=== PATIENT | female | born 1970 | race African-American/Black ===

== ENCOUNTER 2018-12-09 20:31 | Emergency (ER) | payer OTHER, SELFPAY ==
[~2018-12-09] VITALS: Ht 165.1 cm; Wt 73.5 kg
[2018-12-09 21:04] VITALS: BP 161/101
[2018-12-09] MEDS ORDERED: LIDOCAINE 2%/EPI 1:100,000 20 ML VIAL. IJ ONE (21:30)
[2018-12-09] MEDS ORDERED: HYDROcodone/APAP 5/325MG 1 TAB TABLET PO ONE (21:30)
[2018-12-09] MEDS ORDERED: HYDR-3164 PO (23:26)
--- NOTE | 2018-12-09 23:27 | PHYS DOC ---
Past Medical History Past Medical History: No Pertinent History Past Surgical History: No Surgical History Alcohol Use: None Drug Use: None Adult General Chief Complaint Chief Complaint: LACERATION/AVULSION HPI HPI Patient is a 48 year old [f__sex] who presents with [] Review of Systems Review of Systems Constitutional: Denies fever or chills [] Eyes: Denies change in visual acuity, redness, or eye pain [] HENT: Denies nasal congestion or sore throat [] Respiratory: Denies cough or shortness of breath [] Cardiovascular: No additional information not addressed in HPI [] GI: Denies abdominal pain, nausea, vomiting, bloody stools or diarrhea [] : Denies dysuria or hematuria [] Musculoskeletal: Denies back pain or joint pain [] Integument: Denies rash or skin lesions [] Neurologic: Denies headache, focal weakness or sensory changes [] Endocrine: Denies polyuria or polydipsia [] All other systems were reviewed and found to be within normal limits, except as documented in this note. Current Medications Current Medications Current Medications Medications (Trade) Dose Ordered Sig/Yaron Start Time Stop Time Status Last Admin Dose Admin Acetaminophen/ Hydrocodone Bitart (Lortab 5/325) 1 tab 1X ONCE 12/09/18 21:30 12/09/18 21:31 DC 12/09/18 21:37 1 TAB Lidocaine/ Epinephrine (LIDOCAINE 2%-EPI 1:100,000 multi-dose) 20 ml 1X ONCE 12/09/18 21:30 12/09/18 21:31 DC 12/09/18 21:30 20 ML Neomycin/ Polymyxin/ Bacitracin (Triple Antibiotic Ointment) 1 pkt STK-MED ONCE 12/09/18 23:34 12/09/18 23:35 DC Allergies Allergies Allergies Coded Allergies Type Severity Reaction Last Updated Verified quinine Allergy Unknown 12/09/18 Yes Physical Exam Physical Exam Constitutional: Well developed, well nourished, no acute distress, non-toxic appearance. [] HENT: Normocephalic, atraumatic, bilateral external ears normal, oropharynx moist, no oral exudates, nose normal. [] Eyes: PERRLA, EOMI, conjunctiva normal, no discharge. [] Neck: Normal range of motion, no tenderness, supple, no stridor. [] Cardiovascular:Heart rate regular rhythm, no murmur [] Lungs & Thorax: Bilateral breath sounds clear to auscultation [] Abdomen: Bowel sounds normal, soft, no tenderness, no masses, no pulsatile masses. [] Skin: Warm, dry, no erythema, no rash. [] Back: No tenderness, no CVA tenderness. [] Extremities: No tenderness, no cyanosis, no clubbing, ROM intact, no edema. [] Neurologic: Alert and oriented X 3, normal motor function, normal sensory fun ction, no focal deficits noted. [] Psychologic: Affect normal, judgement normal, mood normal. [] Current Patient Data Vital Signs Vital Signs Date Time Temp Pulse Resp B/P (MAP) Pulse Ox O2 Delivery O2 Flow Rate FiO2 12/09/18 21:37 20 Room Air 12/09/18 21:04 98.7 77 161/101 (121) 100 98.7 Lab Values Laboratory Tests Test 12/09/18 21:24 POC Urine HCG, Qualitative Hcg negative (Negative) EKG EKG [] Radiology/Procedures Radiology/Procedures [] Course & Med Decision Making Course & Med Decision Making Pertinent Labs and Imaging studies reviewed. (See chart for details) [] Dragon Disclaimer Dragon Disclaimer This electronic medical record was generated, in whole or in part, using a voice recognition dictation system. Departure Departure Impression: Primary Impression: Hand laceration Disposition: 01 HOME, SELF-CARE Condition: STABLE Referrals: UNKNOWN PCP NAME (PCP) Patient Instructions: Laceration Care, Adult, [id number] Additional Instructions: Do not soak your wound. You may shower. Clean wound daily with soap and water. Change dressing 2 times daily. Use over the counter antibiotic ointment with each dressing change. Sutures need to be removed in 7-10 days. Present to your family doctor or local urgent care for removal. You may also present to the ED but it will be an additional visit/charge. After suture removal you may use Vitamin E ointment to soften the wound and prevent scarring. Scripts Cephalexin (KEFLEX) 500 Mg Capsule 500 MG PO TID for 5 Days, #15 CAP Prov: RUTH PAZ DO 12/09/18 Hydrocodone/Apap 5-325 (NORCO 5-325 TABLET) 1 Each Tablet 0.5 TAB PO PRN Q6HRS PRN for PAIN, #8 TAB 0 Refills Prov: RUTH PAZ DO 12/09/18 Laceration/Wound Repair Laceration/Wound Repair #1: Wound Location: upper extremity Wound's Depth, Shape: superficial, irregular Wound Length (cm): 3 Wound Explored: clean Irrigated w/ Saline (ccs): 250 Betadine Prep?: Yes Anesthesia: Lidocaine w/ Epi Volume Anesthetic (ccs): 5 Wound Debrided: minimal Wound Repaired With: sutures Suture Size/Type: 5:0, nylon Number of Sutures: 5 Layer Closure?: No Sterile Dressing Applied?: Yes Splint Applied?: No Sling Applied?: No Laceration/Wound Repair #2: Wound Location: upper extremity Wound's Depth, Shape: superficial, irregular, flap Wound Length (cm): 2 Wound Explored: clean Irrigated w/ Saline (ccs): 250 Betadine Prep?: Yes Anesthesia: Lidocaine w/ Epi Volume Anesthetic (ccs): 3 Wound Debrided: minimal Wound Repaired With: sutures Suture Size/Type: 5:0 Number of Sutures: 4 Layer Closure?: No Sterile Dressing Applied?: Yes Splint Applied?: No Sling Applied?: No Problem Qualifiers Primary Impression: Hand laceration Encounter type: initial encounter Foreign body presence: without foreign body Laterality: left Qualified Codes: S61.412A - Laceration without fo reign body of left hand, initial encounter RUTH PAZ DO December 09, 2018 23:27
[2018-12-09] MEDS ORDERED: NEOMY/BACITR/POLYMYXIN OINT PACKET. TP ONE (23:34)
[2018-12-09] MEDS ORDERED: CEPH-264 PO (23:48)
--- NOTE | 2018-12-10 02:07 | RAD ---
Left hand 3 views. HISTORY: Pain lacerations from head tremor 3 views were taken of the left hand. There is not evidence of an acute fracture or osseous abnormality. An opaque foreign body is not identified. IMPRESSION: 1. No acute fracture noted in the left hand. Electronically signed by: Azael Kumar MD (12/10/2018 2:04 AM) [facility]
== END 2018-12-09 23:50 | disposition home or self-care (01) ==
LOC: ER 20:31
DX: S61.412A Laceration without foreign body of left hand, initial encounter (principal); Z88.8 Allergy status to other drugs, medicaments and biological substances; W27.1XXA Contact with garden tool, initial encounter; Y93.H2 Activity, gardening and landscaping; Y92.096 Garden or yard of other non-institutional residence as the place of occurrence of the external cause; Y99.8 Other external cause status
CPT/HCPCS: 12002; 73130; 81025; 99284; J3490

== ENCOUNTER 2018-12-27 10:53 | Emergency (ER) | payer OTHER ==
[~2018-12-27] VITALS: Ht 167.6 cm; Wt 68.0 kg
[~2018-12-27 10:53] MED LIST: CEPH-264 PO; HYDR-3164 PO
--- NOTE | 2018-12-27 12:09 | RAD ---
EXAM: HAND LEFT 3V. HISTORY: Third digit infection. COMPARISON: 12/09/2018. FINDINGS: There is soft tissue swelling about the third middle phalanx. No radiopaque foreign body or soft tissue gas is identified. No fractures are identified. Joint spaces and alignment are maintained. IMPRESSION: 1. Soft tissue swelling about the third middle phalanx. No fracture or radiopaque foreign body. Electronically signed by: Toyin Dickey MD (12/27/2018 12:07 PM) [facility]
[2018-12-27] MEDS ORDERED: CLINDAMYCIN 900MG PREMIX 50 ML IV ONE (12:15)
[2018-12-27 12:33] LABS: BASO # 0.1 x10^3/uL (0.0-0.2); BASO % 1 % (0-3); EOS # 0.2 x10^3/uL (0.0-0.7); EOS % 4 % (0-3); HEMATOCRIT 39.6 % (36.0-47.0); LYMPH # 1.4 x10^3/uL (1.0-4.8); LYMPH % 31 % (24-48); MEAN CORPUSCULAR HEMOGLOBIN 26 pg (25-35); MEAN CORPUSCULAR HGB CONC 33 g/dL (31-37); MEAN CORPUSCULAR VOLUME 80 fL (79-100); MONO # 0.4 x10^3/uL (0.0-1.1); MONO % 8 % (0-9); NEUT # 2.5 x10^3uL (1.8-7.7); NEUT % 56 % (31-73); PLATELET COUNT 310 x10^3/uL (140-400); RED BLOOD COUNT 4.94 x10^6/uL (3.50-5.40); RED CELL DISTRIBUTION WIDTH 14.6 % (11.5-14.5); WHITE BLOOD COUNT 4.5 x10^3/uL (4.0-11.0)
[2018-12-27 12:39] LABS: CALCIUM 9.1 mg/dL (8.5-10.1); CREATININE 0.9 mg/dL (0.6-1.0); GFR 80.9
[2018-12-27 12:42] LABS: C-REACTIVE PROTEIN 1.5 mg/L (0-3.3)
--- NOTE | 2018-12-27 12:58 | PHYS DOC ---
Past Medical History Past Medical History: No Pertinent History Past Surgical History: Hysterectomy Alcohol Use: None Drug Use: None Adult General Chief Complaint Chief Complaint: FINGER INJURY HPI HPI Patient is a 48 year old female who presents with left middle finger infection. Patient states on December 09, 2018 she sustained a laceration to the left middle finger that was closed with sutures, she states she also had laceration on the left palm. She states she was discharged with hydrocodone and cephalexin which she took completed. She states she returned to the ED on December 16, 2018 and head sutures removed. She states she has continued to have swelling and redness on the left middle finger and pain. Patient states the finger also feels warm. Patient denies any new injuries. She states her tetanus is up-to-date. Patient is right handed. Denies any drainage from the finger. Review of Systems Review of Systems Constitutional: Denies fever or chills [] : Denies dysuria or hematuria [] Musculoskeletal: Denies back pain or joint pain [] Integument: Reports left middle finger infection, with pain and swelling. Neurologic: Denies headache, focal weakness or sensory changes [] All other systems were reviewed and found to be within normal limits, except as documented in this note. Current Medications Current Medications Current Medications Medications (Trade) Dose Ordered Sig/Yaron Start Time Stop Time Status Last Admin Dose Admin Clindamycin Phosphate 50 ml @ 100 mls/hr 1X ONCE 12/27/18 12:15 12/27/18 12:44 DC 12/27/18 12:25 100 MLS/HR Allergies Allergies Allergies Coded Allergies Type Severity Reaction Last Updated Verified quinine Allergy Unknown 12/09/18 Yes Physical Exam Physical Exam Constitutional: Well developed, well nourished, no acute distress, non-toxic appearance. [] Skin: ventral aspect left middle finger PIP joint with an old laceration approximately 2 cm long. There is no drainage from the fingers. There is trace erythema on the medial and lateral aspect of the PIP joint of the left middle finger. There is warmth to the left middle finger PIP joint. Patient able to flex and extend the finger at the MIP, PIP and DIP joints. Adequate medial, ulnar sensation to the left middle finger. +2 left radial pulse. Cap refill less than 2 seconds. There is another scab noted on the left palmar thenar. The scab has no signs of infection. Back: No tenderness, no CVA tenderness. [] Extremities: No tenderness, no cyanosis, no clubbing, ROM intact, no edema. [] Neurologic: Alert and oriented X 3, normal motor function, normal sensory function, no focal deficits noted. [] Psychologic: Affect normal, judgement normal, mood normal. [] Current Patient Data Vital Signs Vital Signs Date Time Temp Pulse Resp B/P (MAP) Pulse Ox O2 Delivery O2 Flow Rate FiO2 12/27/18 11:10 97.7 71 20 156/87 (110) 97 Room Air 97.7 Lab Values Laboratory Tests Test 12/27/18 12:12 White Blood Count 4.5 x10^3/uL (4.0-11.0) Red Blood Count 4.94 x10^6/uL (3.50-5.40) Hemoglobin 13.0 g/dL (12.0-15.5) Hematocrit 39.6 % (36.0-47.0) Mean Corpuscular Volume 80 fL (79-100) Mean Corpuscular Hemoglobin 26 pg (25-35) Mean Corpuscular Hemoglobin Concent 33 g/dL (31-37) Red Cell Distribution Width 14.6 % (11.5-14.5) H Platelet Count 310 x10^3/uL (140-400) Neutrophils (%) (Auto) 56 % (31-73) Lymphocytes (%) (Auto) 31 % (24-48) Monocytes (%) (Auto) 8 % (0-9) Eosinophils (%) (Auto) 4 % (0-3) H Basophils (%) (Auto) 1 % (0-3) Neutrophils # (Auto) 2.5 x10^3uL (1.8-7.7) Lymphocytes # (Auto) 1.4 x10^3/uL (1.0-4.8) Monocytes # (Auto) 0.4 x10^3/uL (0.0-1.1) Eosinophils # (Auto) 0.2 x10^3/uL (0.0-0.7) Basophils # (Auto) 0.1 x10^3/uL (0.0-0.2) Sodium Level 139 mmol/L (136-145) Potassium Level 4.0 mmol/L (3.5-5.1) Chloride Level 103 mmol/L (98-107) Carbon Dioxide Level 29 mmol/L (21-32) Anion Gap 7 (6-14) Blood Urea Nitrogen 9 mg/dL (7-20) Creatinine 0.9 mg/dL (0.6-1.0) Estimated GFR (Cockcroft-Gault) 80.9 Glucose Level 99 mg/dL (70-99) Lactic Acid Level 1.1 mmol/L (0.4-2.0) Calcium Level 9.1 mg/dL (8.5-10.1) C-Reactive Protein, Quantitative 1.5 mg/L (0-3.3) Laboratory Tests 12/27/18 12:12 Laboratory Tests 12/27/18 12:12 EKG EKG [] Radiology/Procedures Radiology/Procedures [] Impressions: PROCEDURE: HAND LEFT 3V EXAM: HAND LEFT 3V. HISTORY: Third digit infection. COMPARISON: 12/09/2018. FINDINGS: There is soft tissue swelling about the third middle phalanx. No radiopaque foreign body or soft tissue gas is identified. No fractures are identified. Joint spaces and alignment are maintained. IMPRESSION: 1. Soft tissue swelling about the third middle phalanx. No fracture or radiopaque foreign body. Electronically signed by: Toyin Dickey MD (12/27/2018 12:07 PM) [facility] DICTATED and SIGNED BY: KHRIS DICKEY MD DATE: 12/27/181206 Course & Med Decision Making Course & Med Decision Making Pertinent Labs and Imaging studies reviewed. (See chart for details) This is a 48-year-old female patient presented to the ED today with left middle finger infection. See history of present illness for further information. Labs are negative. Given clindamycin IV in the ED. X-ray of the left hand noted for swelling otherwise no acute findings. Talked to patient at length. D/c on Clindamycin and topical Bactroban. She already finished Cephalaxin two weeks ago. F/u with Hand surgeon. Kaity Disclaimer Kaity Disclaimer This electronic medical record was generated, in whole or in part, using a voice recognition dictation system. Departure Departure Impression: Primary Impression: Cellulitis of finger of left hand Disposition: 01 HOME, SELF-CARE Condition: STABLE Referrals: UNKNOWN PCP NAME (PCP) follow up with a hand surgeon of your choice in 2 weeks Patient Instructions: Cellulitis Additional Instructions: You have what appears to be superficial infection on the left middle finger your labs are negative for any acute findings. Use the prescribed medications as ordered. Keep the finger clean and dry. Follow up with your own doctor or a hand surgeon of your choice in 2 weeks Scripts Clindamycin Hcl (CLINDAMYCIN HCL) 300 Mg Capsule 1 CAP PO TID, #21 CAP Prov: KAYCEE VALLES APRN 12/27/18 Mupirocin (MUPIROCIN OINTMENT) 22 Gm Oint...g. 1 EDUARDO TP TID for WOUND CARE, #1 TUBE Prov: KAYCEE VALLES APRN 12/27/18 KAYCEE VALLES APRN Dec 27, 2018 12:58
[2018-12-27 13:15] VITALS: BP 152/86
[2018-12-27] MEDS ORDERED: CLIN300C8 PO (13:17)
[2018-12-27] MEDS ORDERED: MUPI22OI2 TP (13:17)
== END 2018-12-27 13:29 | disposition home or self-care (01) ==
LOC: ER 10:53
DX: L03.012 Cellulitis of left finger (principal); Z88.8 Allergy status to other drugs, medicaments and biological substances
CPT/HCPCS: 36415; 73130; 80048; 83605; 85025; 85651; 86140; 87040; 96365; 99285; J3490

== ENCOUNTER 2019-01-25 10:56 | Emergency (ER) | payer OTHER ==
[~2019-01-25] VITALS: Ht 165.1 cm; Wt 68.0 kg
[~2019-01-25 10:56] MED LIST changes: +CLIN300C8 PO; +MUPI22OI2 TP
[2019-01-25 12:00] VITALS: BP 168/93
--- NOTE | 2019-01-25 13:05 | PHYS DOC ---
Past Medical History Past Medical History: No Pertinent History Past Surgical History: No Surgical History Alcohol Use: None Drug Use: None Adult General Chief Complaint Chief Complaint: HAND PROBLEM HPI HPI Patient is a 48 year old female who presents to the ED today requesting a note to be excused from using the left hand at work. 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 She is right handed. Has an appointment with damian hand surgeon on 02/04/2019 Review of Systems Review of Systems Constitutional: Denies fever or chills [] Musculoskeletal: Left middle finger hypersensitivity Integument: Denies rash or skin lesions [] Neurologic: Denies headache, focal weakness or sensory changes [] All other systems were reviewed and found to be within normal limits, except as documented in this note. Allergies Allergies Allergies Coded Allergies Type Severity Reaction Last Updated Verified quinine Allergy Unknown 12/09/18 Yes Physical Exam Physical Exam Constitutional: Well developed, well nourished, no acute distress, non-toxic appearance. [] Skin: Warm, dry, no erythema, no rash. [] Back: No tenderness, no CVA tenderness. [] Extremities: Left middle finger at the PIP joint with a healed laceration site. There is another healed laceration site on the palm of the left hand at the distal index finger metacarpal. Patient appears to have hypersensitivity on the left lateral middle finger. Full range of motion to the left hand and all the fingers. +2 left radial pulse. Cap refill less than 2 seconds the left fingers. Neurologic: Alert and oriented X 3, normal motor function, normal sensory function, no focal deficits noted. [] Psychologic: Affect normal, judgement normal, mood normal. [] Current Patient Data Vital Signs Vital Signs Date Time Temp Pulse Resp B/P (MAP) Pulse Ox O2 Delivery O2 Flow Rate FiO2 01/25/19 12:00 98.3 72 16 168/93 (118) 99 Room Air 98.3 EKG EKG [] Radiology/Procedures Radiology/Procedures [] Course & Med Decision Making Course & Med Decision Making Pertinent Labs and Imaging studies reviewed. (See chart for details) This is a 48-year-old female patient who presents to the ED today requesting a note not to use her left hand at work because she has had a laceration to the left palm of the hand and left middle finger and has developed hypersensitivity to the left middle finger. She has an appointment with the hand surgeon 02/04/2019. She was provided a note to not use her left hand at work until seen by the hand surgeon Kaity Disclaimer Kaity Disclaimer This electronic medical record was generated, in whole or in part, using a voice recognition dictation system. Departure Departure Impression: Primary Impression: Finger pain, left Disposition: 01 HOME, SELF-CARE Condition: STABLE Referrals: UNKNOWN PCP NAME (PCP) Please follow-up with your hand surgeon as scheduled on February 04, 2019 Patient Instructions: Musculoskeletal Pain Additional Instructions: You were evaluated in the emergency room and provided a note to be excused from using the left hand until seen by the hands on February 04 2019. KAYCEE VALLES APRN Jan 25, 2019 13:05
== END 2019-01-25 13:10 | disposition home or self-care (01) ==
LOC: ER 10:56
DX: R20.8 Other disturbances of skin sensation (principal); S61.213D Laceration without foreign body of left middle finger without damage to nail, subsequent encounter; X58.XXXD Exposure to other specified factors, subsequent encounter; Z88.8 Allergy status to other drugs, medicaments and biological substances
CPT/HCPCS: 99281

== ENCOUNTER → 2019-08-13 | Outpatient (CLI) | payer OTHER ==
--- NOTE | 2019-08-13 17:44 | KCIC ---
PELVIS COMPLETE History: Abnormal uterine bleeding. Comparison: None. Technique: Grayscale and color Doppler imaging of the pelvis was performed using transabdominal technique. Findings: The uterus measures 13.6 x 11.8 x 9.7 cm in length. Multiple heterogeneous masses within the uterus. Large myometrial mass with calcification measures 4.3 cm. Anterior myometrial mass measures 2.9 x 2.8 cm. Posterior myometrial mass measures 2.8 x 1.9 cm. The lesions abut the endometrial distorting the endometrium degrading evaluation. Right ovary measures 3.0 x 1.9 x 1.6 cm and is unremarkable. Left ovary measures 3.7 x 2.7 x 2.2 cm. Left ovarian simple cyst measures 3.4 x 2.3 x 1.7 cm. No adnexal masses are seen. IMPRESSION: 1. Enlarged uterus with numerous fibroids. 2. Simple left ovarian cyst. Electronically signed by: Daniel Sands DO (08/13/2019 5:41 PM) [id number]
== END | disposition home or self-care (01) ==
LOC: KCIC US 14:23
PROVIDERS: ATTEND Obstetrics & Gynecology
DX: N85.2 Hypertrophy of uterus (principal); D25.9 Leiomyoma of uterus, unspecified; N83.202 Unspecified ovarian cyst, left side; N92.0 Excessive and frequent menstruation with regular cycle; N93.9 Abnormal uterine and vaginal bleeding, unspecified
CPT/HCPCS: 76856

== ENCOUNTER → 2019-09-23 | Outpatient (CLI) | payer OTHER ==
[~2019-09-23] MED LIST changes: +ACET-159 PO; +GADOTERATE 7.5 MMOL/15ML VIAL. IVP ONE; +PNV1TABL25 PO
--- NOTE | 2019-09-24 12:28 | KCIC ---
MRI of the pelvis with and without contrast Clinical indications: Uterine fibroids. Had previous fibroid surgery in 2016. COMPARISON: No previous MRI study available. Pelvic sonogram dated August 13, 2019. TECHNIQUE: Pre and postcontrast enhanced MRI sequences of the pelvis were performed in all 3 planes. A total of 14 cc of Dotarem was given intravenously. FINDINGS: Uterus is anteverted in position and is enlarged. Uterus measures 14.5 cm in vertical dimension. There are multiple low signal uterine fibroids throughout the uterus to numerous to count. There is mild enhancement of these fibroids. The there is no T2 degenerative cystic or necrotic change present in the fibroids. The largest is seen on the left side within the mid body of uterus measuring 4 cm. The endometrial canal is distorted as result of the numerous fibroids. There are some fibroids which appear to be intraluminal within the endometrial canal and one such fibroid may be bilobed or represents 2 separate adjacent fibroids within the anterior mid to upper aspect of the endometrial canal. This fibroid measures 3.2 cm greatest dimension. The endometrial canal measures up to 14 mm in thickness. No abnormal enhancement of the endometrium is seen. The junctional zone of the uterus is distorted by the multiple uterine fibroids. Multiple nabothian cysts of the cervix are seen. The vaginal vault and vulva are unremarkable. Urinary bladder wall is smooth. Nonenhancing left ovarian cysts are seen. The largest measures 2.9 cm in size. No mass or dominant cyst of the right ovary is seen. No adnexal mass is seen. No free fluid is seen within the cul-de-sac. No enlarged pelvic lymphadenopathy is seen. IMPRESSION: Enlarged fibroid uterus. Multiple fibroids too numerous to count. Fibroids are seen distorting and extending into the endometrial canal. Endometrial canal is distorted and measures 14 mm in greatest AP thickness. The measurement may be inaccurate due to the distortion by the fibroids. Nabothian cysts of the cervix. 2.9 cm left ovarian cyst. This measured 3.4 cm on previous sonogram dated August 13, 2019. Electronically signed by: Werner Floyd MD (09/24/2019 12:24 PM) [facility]
== END | disposition home or self-care (01) ==
LOC: KCIC MRI 11:41
PROVIDERS: ATTEND Obstetrics & Gynecology Reproductive Endocrinology
DX: D25.9 Leiomyoma of uterus, unspecified (principal); N88.8 Other specified noninflammatory disorders of cervix uteri; N83.202 Unspecified ovarian cyst, left side
CPT/HCPCS: 72197; A9575

== ENCOUNTER → 2019-10-01 | Outpatient (CLI) | payer OTHER ==
[~2019-10-01] MED LIST changes: -GADOTERATE 7.5 MMOL/15ML VIAL. IVP ONE; -PNV1TABL25 PO
== END | disposition home or self-care (01) ==
LOC: LAB 12:39
PROVIDERS: ATTEND Obstetrics & Gynecology
DX: D21.9 Benign neoplasm of connective and other soft tissue, unspecified (principal)
CPT/HCPCS: 36415; 84702

== ENCOUNTER → 2019-10-02 | Outpatient (CLI) | payer OTHER ==
[~2019-10-02] MED LIST changes: +IOHEXOL 180 MG/ML 10 ML VIAL. INT UTERIN ONE
--- NOTE | 2019-10-02 10:35 | KCIC ---
Hysterosalpingogram HISTORY: Infertility COMPARISON: MRI pelvis September 23, 2019 TECHNIQUE: Patient was informed of the risks to include pain, infection, bleeding, allergic reaction. All questions were answered. Patient signed a written consent form for hysterosalpingogram. Patient was placed in a supine position on the fluoroscopy table. External skin surface was cleansed with Betadine solution. Speculum was inserted. Cervix was cleansed with Betadine solution. HSG catheter was inserted and secured with balloon inflation. Contrast was injected during fluoroscopic visualization, 28 cc of Omnipaque 180. The balloon was deflated and catheter removed. Speculum was removed. There were no immediate complications. FINDINGS: Machine Hostler radiograph demonstrates some calcifications in the pelvis greater on the left which may be phleboliths. There is significant enlargement of the uterus with multiple areas of smooth extrinsic compression upon the endometrial cavity. There is a more rounded filling defect along the left aspect of the lower uterine segment, multiple other larger foci near the fundus and more eccentric to the left. Due to the large capacious endometrial cavity and subsequent leakage of contrast about the catheter with further injection, there was difficulty in opacifying the fallopian tubes. Short segment of normal caliber proximal left fallopian tube was visualized although not identified more distally. Only the proximal, somewhat dilated right fallopian tube could be visualized. Fluoroscopy time: 46 seconds, 11 images. IMPRESSION: 1. There is irregular appearing endometrial cavity with multiple filling defects corresponding with multiple uterine masses as seen on recent pelvis MRI. Uterus is enlarged. Only short segments of the proximal fallopian tubes could be visualized, the right proximal fallopian tube slightly dilated. Contrast opacification of the distal fallopian tubes and significant free spill of contrast could not be demonstrated from either fallopian tube during exam despite further injection. Electronically signed by: Martin Wilkinson MD (10/02/2019 10:33 AM) [id number]
== END | disposition home or self-care (01) ==
LOC: KCIC 08:41
PROVIDERS: ATTEND Obstetrics & Gynecology
DX: N85.2 Hypertrophy of uterus (principal); N85.8 Other specified noninflammatory disorders of uterus
CPT/HCPCS: 74740; Q9965

== ENCOUNTER 2019-10-10 06:30 | Inpatient (IN) | payer OTHER ==
[2019-10-10] VITALS (10 sets, daily range): BP systolic 107–133; BP diastolic 59–82
[~2019-10-10] VITALS: Ht 167.6 cm; Wt 79.0 kg
[~2019-10-10 06:30] MED LIST changes: -IOHEXOL 180 MG/ML 10 ML VIAL. INT UTERIN ONE; +PNV1TABL25 PO; +ceFAZolin SODIUM IV Push 1 GM VIAL. IVP ONE
[2019-10-10] MEDS ORDERED: PROCHLORPERAZINE 10 MG/2 ML VIAL. IV PRN ×2 (07:00→10:45)
[2019-10-10] MEDS ORDERED: fentaNYL PF VIAL 100 MCG/2 ML VIAL IV PRN (07:00)
[2019-10-10] MEDS ORDERED: IV RINGERS,LACTATED 1000ML 1,000 ML IV SCH (07:00)
[2019-10-10] MEDS ORDERED: LIDOCAINE 1% PF 2 ML VIAL. ID PRN (07:00)
[2019-10-10] MEDS ORDERED: ONDANSETRON PF 4 MG/2 ML VIAL. IV PRN ×2 (07:00→10:45)
[2019-10-10] MEDS ORDERED: ROCURONIUM 50 MG/5 ML VIAL. ONE (07:38)
[2019-10-10] MEDS ORDERED: MIDAZOLAM HCL/PF 2 MG/2 ML VIAL. ONE (07:38)
[2019-10-10] MEDS ORDERED: DEXAMETHASONE SOD PHOS 4 MG/ML VIAL ONE (08:09)
[2019-10-10] MEDS ORDERED: KETOROLAC 30 MG/ML VIAL. ONE (08:09)
[2019-10-10] MEDS ORDERED: SEVOFLURANE 61 TO 120 MINUTES. IH ONE (08:09)
[2019-10-10] MEDS ORDERED: LIDOCAINE 2% PF 5 ML VIAL. ONE (08:09)
[2019-10-10] MEDS ORDERED: FAMOTIDINE 20 MG/2 ML VIAL ONE (08:09)
[2019-10-10] MEDS ORDERED: PHENYLEPHRINE in 0.9% NACL PF 1 MG/10 ML SYRINGE. IV ONE (08:10)
[2019-10-10] MEDS ORDERED: PROPOFOL 20 ML IV ONE (08:10)
[2019-10-10] MEDS ORDERED: GLYCOPYRROLATE 1 MG/5 ML VIAL. ONE (08:12)
[2019-10-10] MEDS ORDERED: NEOSTIGMINE METHYLSULFATE 5 MG/5 ML SYRINGE. ONE (08:12)
[2019-10-10 09:25] LABS: BASO % 1 % (0-3); EOS # 0.1 x10^3/uL (0.0-0.7); EOS % 2 % (0-3); HEMATOCRIT 37.6 % (36.0-47.0); HEMOGLOBIN 12.2 g/dL (12.0-15.5); LYMPH # 1.6 x10^3/uL (1.0-4.8); LYMPH % 32 % (24-48); MEAN CORPUSCULAR HEMOGLOBIN 25 pg (25-35); MEAN CORPUSCULAR HGB CONC 32 g/dL (31-37); MEAN CORPUSCULAR VOLUME 77 fL (79-100); MONO # 0.5 x10^3/uL (0.0-1.1); MONO % 11 % (0-9); NEUT # 2.8 x10^3/uL (1.8-7.7); NEUT % 55 % (31-73); PLATELET COUNT 284 x10^3/uL (140-400); RED BLOOD COUNT 4.92 x10^6/uL (3.50-5.40); RED CELL DISTRIBUTION WIDTH 17.7 % (11.5-14.5); WHITE BLOOD COUNT 5.1 x10^3/uL (4.0-11.0)
[2019-10-10] MEDS ORDERED: fentaNYL PF VIAL 100 MCG/2 ML VIAL ONE (10:04)
--- NOTE | 2019-10-10 10:32 | PDOC ---
BRIEF OPERATIVE NOTE Date: Oct 10, 2019 Pre-Op Diagnosis 1. Fibroids 2. Menorrhagia Post-Op Diagnosis Same + NARCISA Cyst Procedure Performed Open Laparotomy for myomectomy and NARCISA Cystectomy Surgeon Dr. Mart Senior Svp Ergonomist: Shi Anesthesia Type: General Blood Loss 1, 000 ml Specimens Obtained multiple myomas and NARCISA cyst wall Findings enlarged fibroid uterus, edematous fallopian tubes kalani., NARCISA cyst 6 cm size, multiple pelvic sidewall adhesions; nml ROV Complications none Operative Note see dictation KATHERINE MART Jr, MD Oct 10, 2019 10:32
[2019-10-10] MEDS ORDERED: ZOLPIDEM 5 MG TABLET. PO PRN (10:45)
[2019-10-10] MEDS ORDERED: KETOROLAC 30 MG/ML VIAL. IV PRN (10:45)
[2019-10-10] MEDS ORDERED: 0.9 % SODIUM CHLORIDE 10 ML DISP.SYRIN. IV PRN (10:45)
[2019-10-10] MEDS ORDERED: CALCIUM CARBONATE 500 MG TAB.CHEW PO PRN (10:45)
[2019-10-10] MEDS ORDERED: diphenhydrAMINE 50 MG/ML VIAL IV PRN (10:45)
[2019-10-10] MEDS ORDERED: DEXTROSE 50% 25 GM / 50ML DISP.SYRIN. IV PRN (10:45)
[2019-10-10] MEDS ORDERED: diphenhydrAMINE HCL 25 MG CAPSULE PO PRN (10:45)
[2019-10-10] MEDS: fentaNYL PF VIAL 100 MCG/2 ML VIAL IV PRN ×2 (11:00→11:20)
[2019-10-10] MEDS: DOXYCYCLINE HYCLATE 100 MG TABLET PO SCH (11:00)
--- NOTE | 2019-10-10 11:27 | OP ---
DATE OF SURGERY: PREOPERATIVE DIAGNOSES: 1. Fibroids. 2. Menorrhagia. POSTOPERATIVE DIAGNOSES: 1. Fibroids. 2. Menorrhagia. 3. Left ovarian cyst. PROCEDURE: Open laparotomy for myomectomy and left ovarian cystectomy. SURGEON: Katherine Mart MD [employer] DRIVER: Edel. ANESTHESIA: GETA. ESTIMATED BLOOD LOSS: 1000 mL. COMPLICATIONS: None. FINDINGS: Enlarged fibroid uterus, edematous fallopian tubes bilaterally, left ovarian cyst 6 cm size, multiple pelvic sidewall adhesions, and normal right ovary. SUMMARY: A 49-year-old female with long history of fibroid uterus and menorrhagia. The patient had previous myomectomies and desires a myomectomy as well to preserve fertility. The patient was counseled on the risks, benefits and expectations of open laparotomy for myomectomy. She was also counseled on the risk for possible hysterectomy or for any excessive bleeding risk and voiced clear understanding to proceed. DESCRIPTION OF PROCEDURE: The patient was taken to surgery suite and placed in dorsal supine position. She was prepped with ChloraPrep and draped in sterile fashion. After adequate anesthesia, Pfannenstiel skin incision was made with scalpel down to and through the fascia. The fascia was extended laterally using curved Boykin scissors. The superior edge of fascia was grasped with two Milton clamps and dissected free of the abdominal rectus muscles using blunt dissection along with Bovie cautery. The same process took place inferiorly. The abdominal rectus muscle dissected bluntly at the midline. Peritoneum was entered sharply with Metzenbaum scissors. This incision was extended superiorly as well as inferiorly. There were multiple pelvic sidewall adhesions that were dissected meticulously with Metzenbaum scissors along with blunt dissection that were attached to the bowels along with the pelvic sidewall on the left fallopian tube. Once these were removed, the Rafal ring retractor was placed. Packing was placed. We further dissected left fallopian tube from the pelvic sidewall. The left ovarian cyst was about 6 cm size, appeared to be a simple cyst, which a cystotomy was performed. A portion of the ovarian cyst wall was removed. The remaining cyst wall was fulgurated for hemostasis. The single tooth tenaculum was used to grasp the fundus of the uterus for better retraction purposes. There were multiple fibroids throughout the uterus. The MRI was reviewed again during the procedure to help with direction of myomectomy. A vertical incision was made from about the level of the fallopian tubes anteriorly all the way down to the lower uterine segment and dissected all the way down with Metzenbaum scissors removing multiple fibroids of various sizes from 0.5 cm up to 4 cm size fibroids, which were enucleated and dissected out meticulously with Metzenbaum scissors. Once all the way down to the endometrium, there were multiple fibroids varying in sizes from 3 cm up to 5 cm size, which were also removed with the aid of Lena clamps and Metzenbaum scissors. Cautery was not utilized in the endometrial cavity at all. The fallopian tube ostia were palpated as well as visualized and appeared to be patent. Upon visualization two of the capsules in which the fibroids were removed from the endometrium were reapproximated using 2-0 Vicryl suture in a [id number]-[id number] manner to aid with hemostasis. The myometrial layer was reapproximated using 2-0 Vicryl suture in a running fashion, which was reapproximated in 2 layers. The third layer incorporated the serosa, which was a 2-0 Vicryl in a running fashion. The single tooth tenaculum was removed, in the area of the single tooth tenaculum two 0 Vicryl sutures were placed in a jahlcy-ci-rtqjc manner for hemostasis purposes. Warm irrigation was utilized to verify good hemostasis. Interceed was placed over the hysterotomy incision in vertical fashion. The Rafal ring retractor was removed. The abdominal packing was removed as well. The peritoneum was reapproximated using #1 Vicryl suture in running fashion. Fascia was reapproximated using 0 Vicryl suture in running fashion. Skin was reapproximated using 4-0 Vicryl suture in subcuticular manner. The patient tolerated the procedure well and was taken to recovery room in stable condition. Sponge and needle count correct x 3. KATHERINE MART MD DR: ALMITA/rigo JOB#: [id number] / [id number]
[2019-10-10] MEDS: GABAPENTIN 300 MG CAPSULE. PO SCH ×2 (13:31→21:40)
[2019-10-10] MEDS: IBUPROFEN 400 MG TABLET. PO PRN (21:40)
[2019-10-11] MEDS: DOXYCYCLINE HYCLATE 100 MG TABLET PO SCH ×3 (00:35→21:36)
[2019-10-11 00:40] VITALS: BP 105/55
[2019-10-11 05:50] VITALS: BP 130/72
[2019-10-11] MEDS: IBUPROFEN 400 MG TABLET. PO PRN ×3 (05:59→18:23)
[2019-10-11] MEDS: GABAPENTIN 300 MG CAPSULE. PO SCH ×3 (05:59→21:36)
[2019-10-11 07:10] LABS: BASO % 1 % (0-3); EOS % 0 % (0-3); HEMATOCRIT 29.3 % (36.0-47.0); HEMOGLOBIN 9.5 g/dL (12.0-15.5); LYMPH % 26 % (24-48); MEAN CORPUSCULAR HEMOGLOBIN 25 pg (25-35); MEAN CORPUSCULAR HGB CONC 33 g/dL (31-37); MEAN CORPUSCULAR VOLUME 77 fL (79-100); MONO # 0.9 x10^3/uL (0.0-1.1); MONO % 12 % (0-9); NEUT # 4.6 x10^3/uL (1.8-7.7); NEUT % 61 % (31-73); PLATELET COUNT 232 x10^3/uL (140-400); RED BLOOD COUNT 3.83 x10^6/uL (3.50-5.40); RED CELL DISTRIBUTION WIDTH 17.6 % (11.5-14.5); WHITE BLOOD COUNT 7.6 x10^3/uL (4.0-11.0)
[2019-10-11] MEDS: DOCUSATE SODIUM 100 MG CAPSULE. PO PRN ×2 (10:07→18:23)
[2019-10-11] MEDS: SIMETHICONE 80 MG TAB.CHEW PO PRN ×2 (10:07→18:23)
[2019-10-11] MEDS ORDERED: ACETAMINOPHEN 500 MG TABLET PO PRN (10:15)
[2019-10-11 10:18] VITALS: BP 104/64
--- NOTE | 2019-10-11 13:19 | PDOC ---
SURGICAL PROGRESS NOTE Subjective Pt. feeling well. Pain controlled. Pt. ambulating and tolerating regular diet and flatus. Vital Signs Vital Signs Date Time Temp Pulse Resp B/P (MAP) Pulse Ox O2 Delivery O2 Flow Rate FiO2 10/11/19 10:18 98.2 93 18 104/64 (77) 100 Room Air 98.2 10/10/19 11:20 10.0 I&O Intake and Output 10/11/19 07:00 Intake Total 4900 ml Output Total 5225 ml Balance -325 ml Intake Oral 1900 ml IV Total 3000 ml Output Urine Total 4225 ml Estimated Blood Loss 1000 ml PATIENT HAS A FOFANA: No General: Alert, Oriented X3, Cooperative HEENT: Atraumatic Lungs: Clear to auscultation Heart: Regular rate Abdomen: Normal bowel sounds, Soft, No tenderness, No masses, Other (Incision site: clean, dry and intact) Psych/Mental Status: Mental status NL Labs Laboratory Tests Test 10/10/19 06:56 10/10/19 08:00 10/11/19 06:41 Bedside Urine HCG, Qualitative Hcg negative (Negative) White Blood Count 5.1 x10^3/uL (4.0-11.0) 7.6 x10^3/uL (4.0-11.0) Red Blood Count 4.92 x10^6/uL (3.50-5.40) 3.83 x10^6/uL (3.50-5.40) Hemoglobin 12.2 g/dL (12.0-15.5) 9.5 g/dL (12.0-15.5) Hematocrit 37.6 % (36.0-47.0) 29.3 % (36.0-47.0) Mean Corpuscular Volume 77 fL (79-100) 77 fL (79-100) Mean Corpuscular Hemoglobin 25 pg (25-35) 25 pg (25-35) Mean Corpuscular Hemoglobin Concent 32 g/dL (31-37) 33 g/dL (31-37) Red Cell Distribution Width 17.7 % (11.5-14.5) 17.6 % (11.5-14.5) Platelet Count 284 x10^3/uL (140-400) 232 x10^3/uL (140-400) Neutrophils (%) (Auto) 55 % (31-73) 61 % (31-73) Lymphocytes (%) (Auto) 32 % (24-48) 26 % (24-48) Monocytes (%) (Auto) 11 % (0-9) 12 % (0-9) Eosinophils (%) (Auto) 2 % (0-3) 0 % (0-3) Basophils (%) (Auto) 1 % (0-3) 1 % (0-3) Neutrophils # (Auto) 2.8 x10^3/uL (1.8-7.7) 4.6 x10^3/uL (1.8-7.7) Lymphocytes # (Auto) 1.6 x10^3/uL (1.0-4.8) 2.0 x10^3/uL (1.0-4.8) Monocytes # (Auto) 0.5 x10^3/uL (0.0-1.1) 0.9 x10^3/uL (0.0-1.1) Eosinophils # (Auto) 0.1 x10^3/uL (0.0-0.7) 0.0 x10^3/uL (0.0-0.7) Basophils # (Auto) 0.0 x10^3/uL (0.0-0.2) 0.0 x10^3/uL (0.0-0.2) Laboratory Tests Test 10/11/19 06:41 White Blood Count 7.6 x10^3/uL (4.0-11.0) Red Blood Count 3.83 x10^6/uL (3.50-5.40) Hemoglobin 9.5 g/dL (12.0-15.5) Hematocrit 29.3 % (36.0-47.0) Mean Corpuscular Volume 77 fL (79-100) Mean Corpuscular Hemoglobin 25 pg (25-35) Mean Corpuscular Hemoglobin Concent 33 g/dL (31-37) Red Cell Distribution Width 17.6 % (11.5-14.5) Platelet Count 232 x10^3/uL (140-400) Neutrophils (%) (Auto) 61 % (31-73) Lymphocytes (%) (Auto) 26 % (24-48) Monocytes (%) (Auto) 12 % (0-9) Eosinophils (%) (Auto) 0 % (0-3) Basophils (%) (Auto) 1 % (0-3) Neutrophils # (Auto) 4.6 x10^3/uL (1.8-7.7) Lymphocytes # (Auto) 2.0 x10^3/uL (1.0-4.8) Monocytes # (Auto) 0.9 x10^3/uL (0.0-1.1) Eosinophils # (Auto) 0.0 x10^3/uL (0.0-0.7) Basophils # (Auto) 0.0 x10^3/uL (0.0-0.2) Assessment/Plan A: POD#1 s/p Open Lap Myomectomy and NARCISA cystectomy P: Continue post op care. KATHERINE MERA Jr, MD Oct 11, 2019 13:19
[2019-10-11 15:15] VITALS: BP 117/67
[2019-10-11] MEDS: FERROUS SULFATE 325 MG TABLET. PO SCH (18:24)
[2019-10-11 18:36] VITALS: BP 96/61
[2019-10-11 21:55] VITALS: BP 123/78
[2019-10-12 02:10] VITALS: BP 115/67
[2019-10-12 06:30] VITALS: BP 109/64
[2019-10-12] MEDS: GABAPENTIN 300 MG CAPSULE. PO SCH (06:39)
[2019-10-12] MEDS: DOCUSATE SODIUM 100 MG CAPSULE. PO PRN (08:18)
[2019-10-12] MEDS: FERROUS SULFATE 325 MG TABLET. PO SCH (08:19)
[2019-10-12] MEDS: IBUPROFEN 400 MG TABLET. PO PRN (08:19)
[2019-10-12] MEDS: SIMETHICONE 80 MG TAB.CHEW PO PRN (08:20)
[2019-10-12] MEDS ORDERED: PRENATAL MULTIVITAMIN TABLET. PO SCH (09:00)
[2019-10-12] MEDS: DOXYCYCLINE HYCLATE 100 MG TABLET PO SCH (10:23)
[2019-10-12 10:26] VITALS: BP 113/69
--- NOTE | 2019-10-12 12:18 | PDOC ---
SURGICAL PROGRESS NOTE Subjective Pt. feeling well. Pain controlled. Vital Signs Vital Signs Date Time Temp Pulse Resp B/P (MAP) Pulse Ox O2 Delivery O2 Flow Rate FiO2 10/12/19 10:26 98.2 80 20 113/69 (84) 95 Room Air 98.2 I&O Intake and Output 10/12/19 07:00 Intake Total 1750 ml Output Total 850 ml Balance 900 ml Intake Oral 1750 ml Output Urine Total 850 ml # Voids 4 General: Alert, Oriented X3, Cooperative HEENT: Atraumatic Lungs: Clear to auscultation Heart: Regular rate Abdomen: Normal bowel sounds, Soft, No tenderness, Other (Incision site: clean, dry and intact) Psych/Mental Status: Mental status NL Labs Laboratory Tests Test 10/11/19 06:41 White Blood Count 7.6 x10^3/uL (4.0-11.0) Red Blood Count 3.83 x10^6/uL (3.50-5.40) Hemoglobin 9.5 g/dL (12.0-15.5) Hematocrit 29.3 % (36.0-47.0) Mean Corpuscular Volume 77 fL (79-100) Mean Corpuscular Hemoglobin 25 pg (25-35) Mean Corpuscular Hemoglobin Concent 33 g/dL (31-37) Red Cell Distribution Width 17.6 % (11.5-14.5) Platelet Count 232 x10^3/uL (140-400) Neutrophils (%) (Auto) 61 % (31-73) Lymphocytes (%) (Auto) 26 % (24-48) Monocytes (%) (Auto) 12 % (0-9) Eosinophils (%) (Auto) 0 % (0-3) Basophils (%) (Auto) 1 % (0-3) Neutrophils # (Auto) 4.6 x10^3/uL (1.8-7.7) Lymphocytes # (Auto) 2.0 x10^3/uL (1.0-4.8) Monocytes # (Auto) 0.9 x10^3/uL (0.0-1.1) Eosinophils # (Auto) 0.0 x10^3/uL (0.0-0.7) Basophils # (Auto) 0.0 x10^3/uL (0.0-0.2) Assessment/Plan POD#2 s/p Open Lap Myomectomy and NARCISA Cystectomy P: D/c home. KATHERINE MERA Jr, MD Oct 12, 2019 12:18
[2019-10-12] MEDS ORDERED: IBUP-1027 PO (12:21)
[2019-10-12] MEDS ORDERED: DOCU-153 PO (12:21)
[2019-10-12] MEDS ORDERED: FERR325T72 PO (12:21)
[2019-10-12] MEDS ORDERED: GABA300C18 PO (12:21)
[2019-10-12] MEDS ORDERED: DOXY100T PO (12:21)
--- NOTE | 2019-10-12 12:21 | DISCH ---
DISCHARGE INSTRUCTIONS Condition on Discharge Condition on Discharge: Stable Activity After Discharge Activity Instructions for Disc: Activity as tolerated Lifting Instructions after Dis: No heavy lifting Driving Instructions after Dis: No driving for 2 weeks Diet after Discharge Diet after Discharge: Regular Contacting the DRaMya after DC Call your doctor for: Concerns you may have Follow-Up Follow up with: Dr. Mart in 2 wks KATHERINE MART Jr, MD Oct 12, 2019 12:21
[2019-10-12 12:45] VITALS: BP 116/77
--- NOTE | 2019-10-12 12:50 | NUR ---
Pt. dc'd to home with family. DC instructions given, v/u. Pt. taken to personal vehicle via w/c accompanied by RN. Pt. plans to follow-up with Dr. Mart in 2 weeks.
--- NOTE | 2019-10-14 17:06 | PATHOLOGY ---
[facility] Accession Number: [id number] . 01 Material submitted: . PART A: ovary - LEFT OVARIAN CYST WALL. Modifiers: left, wall PART B: uterus - MYOMAS . 01 Clinical history: . None provided . 02 Diagnosis: A. Segments of ovarian tissue, left ovarian cyst wall: - Hemorrhagic corpus luteum cyst. . B. Segments of myometrial and endomyometrial tissue, myomectomy: - Leiomyomas, showing focal attenuation and atrophy of overlying endometrium and small focus of residual secretory endometrium. . (JPM:mml; 10/14/2019) [facility] 10/14/2019 1023 Local . 02 Comment: Sections of the left ovarian cyst wall reveal a hemorrhagic corpus luteum cyst. There is no evidence of endometriosis or malignancy. . Sections of the myomectomy reveal multiple leiomyomas. There is no evidence of malignancy. . (JPM:mml; 10/14/2019) . 02 Electronically signed: . Jamie Basiilo MD, Pathologist NPI- [id number] . 01 Gross description: . A. The specimen is received in formalin, labeled "Quinten Miller, left ovarian cyst wall". Received are two segments of pale champagne to peralta-champagne fibromembranous tissue measuring 3.5 x 2.0 x 0.9 cm in aggregate dimensions. No distinct nodules or lesions are noted grossly. The specimen is submitted representatively in cassettes A1 and A2. . B. The specimen is received in formalin, labeled "Quinten Miller, myomas". Received is a 10.6 x 9.5 x 4.1 cm aggregate of champagne-white firm rubbery tissue consistent with fibroids, ranging in size from 0.8 to 3.8 cm in maximum dimensions. The specimen has an aggregate weight of 71 g. Sectioning reveals white, trabeculated cut surfaces throughout with no gross evidence of degeneration or necrosis. The specimen is submitted representatively in cassettes B1 through B5. (CAA; 10/11/2019) [facility] 10/14/2019 1011 Local . 02 Pathologist provided ICD-10: N83.12, D25.9, N85.8 . 02 CPT . 456875, 451499 Specimen Comment: A courtesy copy of this report has been sent to [phone] Specimen Comment: Report sent to Performed at: [facility] [address], [place] [id number] MD Ricky Ontiveros MD Phone: [phone] [facility]formed at: [facility] [address], [place] [id number] MD Jamie Basilio MD Phone: [phone]
== END 2019-10-12 12:50 | disposition home or self-care (01) | DRG 743 ==
LOC: OPSVCIP 06:30 → 3 NORTH 12:00
PROVIDERS: ADMIT Obstetrics & Gynecology; ATTEND Obstetrics & Gynecology
PROC: 0UB10ZZ Excision of Left Ovary, Open Approach (ICD-10-PCS; 2019-10-10)
PROC: 0UB90ZZ Excision of Uterus, Open Approach (ICD-10-PCS; principal; 2019-10-10 08:00)
DX: D25.9 Leiomyoma of uterus, unspecified (principal); N73.6 Female pelvic peritoneal adhesions (postinfective); N83.202 Unspecified ovarian cyst, left side; N92.0 Excessive and frequent menstruation with regular cycle; Z88.8 Allergy status to other drugs, medicaments and biological substances
CPT/HCPCS: 36415; 81025; 85025; 86850; 86900; 86901; 88305; A7015; J0690; J1100; J1885; J2250; J2370; J2704; J2710; J3010; J3490; J7120; G0378

== ENCOUNTER → 2020-05-26 | Outpatient (CLI) | payer OTHER ==
[~2020-05-26] MED LIST changes: +DOCU-153 PO; +DOXY100T PO; +FERR325T72 PO; +GABA300C18 PO; +IBUP-1027 PO; -ceFAZolin SODIUM IV Push 1 GM VIAL. IVP ONE
--- NOTE | 2020-05-29 10:47 | KCIC ---
Bilateral digital screening mammograms with 3-D tomosynthesis: Reason for examination: Routine screening. Comparison is made to previous studies dated 08/21/2014 and 08/05/2014. Bilateral mammograms in CC and oblique projections were obtained with 2-D imaging and 3-D tomosynthesis imaging on a Siemens Inspiration unit and reviewed on the workstation. Interpretation was made with the benefit of CAD. The skin and nipples show no abnormalities. No abnormal axillary lymph nodes are seen. The breast parenchyma shows scattered fatty and fibroglandular density. (Breast density: Category B.) There appears to be a cluster of 3 small nodules in the lower outer quadrant of the left breast at approximately the 4:00 B position. The largest measuring 8.3 mm in size. There is a circumscribed but slightly lobulated nodule at the 11:00 position of the left breast measuring 1.2 cm in size approximately 12 cm from the nipple. There is a 1.6 cm nodular lesion at the 2:00 position approximately 11 cm from the nipple. There is a 1 cm nodule posterior medially in the left breast 20 cm from the nipple on cc view at approximately the 8:30 C position. Further evaluation of these nodules with ultrasound is recommended. In the right breast there are 2 small nodules at approximately the 8:00 and 8:30 positions 8 cm from the nipple measuring 6 mm and 7.2 mm in size. Recommend further evaluation with ultrasound. There are no other dominant masses, suspicious calcifications or architectural distortion. Impression: Small nodules bilaterally as described above. Recommend further evaluation with ultrasound. BI-RAD Category 0: Incomplete. Needs additional imaging evaluation. "Our facility is accredited by the [employer] Mammography Program." This patient's information has been entered into a reminder system for the patient to be notified with the results of her examination and a target date for the next mammogram. Electronically signed by: Holly Mei MD (05/29/2020 10:44 AM) [id number]
== END ==
LOC: KCIC MAMMO 15:39
PROVIDERS: ATTEND Obstetrics & Gynecology
DX: Z12.31 Encounter for screening mammogram for malignant neoplasm of breast (principal); N63.20 Unspecified lump in the left breast, unspecified quadrant; N63.10 Unspecified lump in the right breast, unspecified quadrant
CPT/HCPCS: 77063; 77067

== ENCOUNTER → 2020-05-28 | Outpatient (CLI) | payer OTHER | LOC: LAB 13:38 | PROVIDERS: ATTEND Obstetrics & Gynecology | DX: E28.8 Other ovarian dysfunction (principal) | CPT/HCPCS: 82306; 84443; 86592; 86703; 86704; 86762; 86787; 86803; 86850; 86900; 86901; 87340; 87491; 87591 ==

== ENCOUNTER → 2020-06-02 | Outpatient (CLI) | payer OTHER ==
--- NOTE | 2020-06-02 17:11 | KCIC ---
Left breast ultrasound: Reason for examination: Bilateral breast nodules on screening mammogram. Comparison is made to mammographic exam dated 05/26/2020. Ultrasound examination bilaterally was performed of the breasts and axilla. In the left breast at the 4:00 position 12 cm from the nipple, there is a hypoechoic circumscribed lesion in parallel orientation with septations measuring 1.2 cm in greatest dimension consistent with a small fibroadenoma and showing no abnormal vascularity. At the 2:00 position 11 cm from the nipple, there is a hypoechoic circumscribed lesion measuring 9.7 mm in greatest dimension and lying in parallel orientation with a benign fibroadenomatous appearance. No abnormality seen to correspond with the area of mammographic concern posterior medially. No abnormal appearing lymph nodes are seen in the left axilla. In the right breast, there are 2 small hypoechoic circumscribed lesions consistent with fibrocystic nodules at the 8:00 position 8 cm from the nipple measuring 4.2 and 4.6 mm in greatest dimensions. No other cystic or solid nodules are seen. No abnormal appearing lymph nodes are seen in the right axilla. IMPRESSION: Small benign-appearing cystic, fibrocystic and fibroadenomatous nodules. No suspicious lesion seen. Recommend 6 month follow-up with mammograms and ultrasound. BI-RADS Category 3: Probably Benign. "Our facility is accredited by the [employer] Mammography Program." This patient's information has been entered into a reminder system for the patient to be notified with the results of her examination and a target date for the next mammogram. Electronically signed by: Holly Mei MD (06/02/2020 5:08 PM) [email or web address]
== END ==
LOC: KCIC US 10:18
PROVIDERS: ATTEND Obstetrics & Gynecology
DX: R92.8 Other abnormal and inconclusive findings on diagnostic imaging of breast (principal); N63.13 Unspecified lump in the right breast, lower outer quadrant
CPT/HCPCS: 76641

== ENCOUNTER → 2020-06-09 | Outpatient (CLI) | payer OTHER ==
[2020-06-09 12:45] LABS: PREG TEST PT QUAL NEGATIVE (NEG)
== END ==
LOC: RAD 11:39
PROVIDERS: ATTEND Obstetrics & Gynecology
DX: N93.8 Other specified abnormal uterine and vaginal bleeding (principal)
CPT/HCPCS: 84703

== ENCOUNTER → 2020-06-10 | Outpatient (CLI) | payer OTHER ==
[~2020-06-10] MED LIST changes: +GADOTERATE 5 MMOL/10ML VIAL. IVP ONE
--- NOTE | 2020-06-10 16:27 | KCIC ---
EXAM: MRI pelvis with and without contrast. HISTORY: Infertility, uterine fibroids. TECHNIQUE: MRI of the pelvis was performed before and after the intravenous administration of 16 mL of Clariscan. COMPARISON: 09/23/2019. FINDINGS: There are significant limitations from motion artifact. There are interval changes of resection of multiple endophytic submucosal fibroids. The endometrial stripe is significantly less distorted and measures 4 mm in thickness. Overall endometrial morphology is approximately normal, with mild narrowing along the lower uterine segment. Many myometrial fibroids enlarge the uterus to 12.1 x 8.9 x 8.9 cm. The largest on the right measures 2.8 x 2.5 cm. There are approximately 3 other fibroids of similar size, and many which measure <2 cm. The uterine junctional zone is diffusely thickened to up to 21 mm posteriorly and contains multiple small cystic foci consistent with adenomyosis. A right ovarian follicle or small cyst measures 3.5 x 2.0 cm. The left ovary is superiorly placed and unremarkable. IMPRESSION: 1. Interval resection of multiple submucosal endophytic fibroids. The morphology of the endometrial cavity is now approximately normal. 2. Findings consistent with extensive uterine adenomyosis. 3. The uterus is moderately enlarged by many small myometrial fibroids. 4. 3.5 cm right ovarian cyst or dominant follicle. Electronically signed by: Toyin Dickey MD (06/10/2020 4:24 PM) [id number]
== END ==
LOC: KCIC MRI 15:02
PROVIDERS: ATTEND Obstetrics & Gynecology Reproductive Endocrinology
DX: D25.9 Leiomyoma of uterus, unspecified (principal); N80.0 Endometriosis of uterus; N83.291 Other ovarian cyst, right side; Z87.42 Personal history of other diseases of the female genital tract
CPT/HCPCS: 72197; A9575

== ENCOUNTER → 2020-06-16 | Outpatient (CLI) | payer OTHER ==
[~2020-06-16] MED LIST changes: -GADOTERATE 5 MMOL/10ML VIAL. IVP ONE
[2020-06-16 13:08] LABS: PREG TEST PT QUAL NEGATIVE (NEG)
== END ==
LOC: LAB 11:43
PROVIDERS: ATTEND Obstetrics & Gynecology
DX: N93.9 Abnormal uterine and vaginal bleeding, unspecified (principal)
CPT/HCPCS: 84703